=== PATIENT | female | born 1985 | race Two or more races ===

== ENCOUNTER 2022-06-11 22:43 | Emergency (ER) | payer OTHER ==
[~2022-06-11] VITALS: Ht 157.5 cm; Wt 59.9 kg
[2022-06-11] MEDS ORDERED: ADVIL (22:59)
[2022-06-12] MEDS ORDERED: BACTRIM DS TAB1 EACH PO (08:05)
[2022-06-12] MEDS ORDERED: NAPROXEN500 MG PO (08:05)
[2022-06-12] MEDS ORDERED: KETO10TA2 PO (08:06)
== END 2022-06-12 08:12 | disposition home or self-care (01) ==
LOC: ER 22:43
DX: N39.0 Urinary tract infection, site not specified (principal); N30.10 Interstitial cystitis (chronic) without hematuria; N83.202 Unspecified ovarian cyst, left side; N83.201 Unspecified ovarian cyst, right side; B96.20 Unspecified Escherichia coli [E. coli] as the cause of diseases classified elsewhere; Z88.6 Allergy status to analgesic agent

== ENCOUNTER → 2023-01-26 | Outpatient (CLI) | payer OTHER ==
[~2023-01-26] MED LIST: ADVIL; BACTRIM DS TAB1 EACH PO; KETO10TA2 PO; NAPROXEN500 MG PO
== END | disposition home or self-care (01) ==
LOC: RAD 11:13
PROVIDERS: ATTEND General Practice
DX: N94.6 Dysmenorrhea, unspecified (principal); R30.0 Dysuria

== ENCOUNTER 2025-06-12 07:35 | Day surgery (SDC) | payer OTHER ==
[2025-06-11 09:42] LABS: BASO % 0.3 % (0.1-1.2); EOS # 0.09 (0.04-0.54); EOS % 0.8 % (0.7-7.0); LYMPH # 2.59 (1.18-3.74); LYMPH % 23.9 % (19.3-53.1); MEAN PLATELET VOLUME 10.10 fl (9.4-12.4); MONO # 1.06 (0.24-0.82); MONO % 9.8 % (4.7-12.5); NEUT # 7.00 (1.56-6.13); NEUT % 64.7 % (34.0-71.1); RED CELL DISTRIBUTION WIDTH 13.5 % (11.6-14.4)
[2025-06-11 10:01] LABS: INR 0.97
[~2025-06-12 07:35] MED LIST changes: +MULTIVITAMINS1 EAC4 PO
[2025-06-12] MEDS ORDERED: CEFTRIAXONE SODIUM 2,000 MG VIAL IV ONE (10:45)
[2025-06-12] MEDS ORDERED: CEFOXITIN SODIUM 1,000 MG VIAL IV ONE (12:15)
[2025-06-12] MEDS ORDERED: POVIDONE-IODINE 118 ML BOTT TOP ONE (12:15)
[2025-06-12 15:16] VITALS: BP 103/65; O2SAT 100
== END 2025-06-12 14:00 | disposition home or self-care (01) ==
LOC: CIR.AMB 07:35
PROVIDERS: ATTEND Obstetrics & Gynecology Maternal & Fetal Medicine
DX: O02.1 Missed abortion (principal); Z88.6 Allergy status to analgesic agent